=== PATIENT | female | born 1950 | race Caucasian/White ===

== ENCOUNTER 2020-10-27 11:59 | Emergency (ER) | payer MEDICARE ==
[~2020-10-27] VITALS: Ht 167.6 cm; Wt 59.1 kg
[2020-10-27] MEDS ORDERED: LAMO100 PO (12:16)
[2020-10-27] MEDS ORDERED: LITH300C3 PO (12:17)
[2020-10-27] MEDS ORDERED: APIX5TAB PO (12:18)
[2020-10-27] MEDS ORDERED: QUET300T5 PO (12:19)
[2020-10-27] MEDS ORDERED: LURA60TA PO (12:20)
[2020-10-27 13:34] VITALS: BP 128/79
== END 2020-10-27 14:05 | disposition home or self-care (01) ==
LOC: EMS 12:01
DX: F31.9 Bipolar disorder, unspecified (principal)
CPT/HCPCS: Z7502

== ENCOUNTER 2020-12-19 05:42 | Emergency (ER) | payer MEDICARE, MEDICAID ==
[~2020-12-19 05:42] MED LIST: APIX5TAB PO; LAMO100 PO; LITH300C3 PO; LURA60TA PO; QUET300T5 PO
== END 2020-12-19 09:10 | disposition home or self-care (01) ==
LOC: EMS 05:46
DX: F31.9 Bipolar disorder, unspecified (principal); R45.851 Suicidal ideations
CPT/HCPCS: 99285; Z7502